=== PATIENT | male | born 1960 | race Caucasian/White ===

== ENCOUNTER 2017-03-14 09:53 | Inpatient (IN) ==
[2017-03-14] MEDS ORDERED: SODIUM CHLORIDE 0.9% 1,000 ML IV STA ×2 (10:27→10:37)
[2017-03-14 11:06] LABS: Basophils # 0.1 10*3/uL (0.0-0.2); Basophils % 1.4 % (0.0-0.8); Eosinophils # 0.2 10*3/uL (0.0-0.87); Eosinophils % 3.4 % (0.00-10.9); Hematocrit 42.4 VOL% (42.0-52.0); Hemoglobin 13.7 GM/DL (14.0-18.0); Immature Granulocytes % 0.2 %; Immature Granulocytes Absolute 0.01 #; Lymphocytes # 0.9 10*3/uL (1.4-4.0); Lymphocytes % 20.7 % (21.2-54.2); Mean Corpuscular HGB Conc 32.3 GM/DL (32-36); Mean Corpuscular Hemoglobin 28 PG (27-34); Mean Corpuscular Volume 85.3 FL (87-102); Mean Platelet Volume 10.8 FL (9.6-12.0); Monocytes # 0.3 10*3/uL (0.11-0.8); Monocytes % 7.7 % (1.7-12.7); Neutrophils # 2.9 10*3/uL (1.4-7.4); Neutrophils % 66.6 % (38.7-73.9); Platelet Count 296 T/CUMM (130-400); Red Blood Count 4.97 MC/CUMM (3.8-5.5); Red Cell Distribution Width 13.2 % (9.3-17.3); White Blood Count 4.4 T/CUMM (4-12)
[2017-03-14 11:15] LABS: Apearance,Urine CLEAR (Clear); Bilirubin,Urine Negative (Negative); Blood, Urine Negative (Negative); Glucose,Urine (UA) Negative (Negative); Hyaline Casts,Urine 2 /LPF (0-3); Ketones,Urine Negative (Negative); Mucus,Urine Occasional /LPF (Occasional); Nitrite,Urine Negative (Negative); Protein,Urine Negative; RBC,Urine 1 /HPF (0-4); Squamous Epithelial Cell,Urine Occasional /HPF (0-10); Urine Color Yellow (Yellow); Urine Specific Gravity 1.021 (1.001-1.035); WBC,Urine 1 /HPF (0-6)
[2017-03-14 11:17] LABS: Barbiturates Screen,Urine Negative (Negative); Benzodiazepines Screen,Urine Negative (Negative); Cannabinoid Screen,Urine Negative (Negative); Opiate Screen,Urine Negative (Negative); Phencyclidine Screen,Urine Negative (Negative)
[2017-03-14 11:18] LABS: Ammonia 29 UMOL/L (11-32)
[2017-03-14 11:33] LABS: Alanine Aminotransferase 39 U/L (16-61); Albumin 4.1 G/DL (3.4-5.0); Alkaline Phosphatase 167 U/L (45-117); Aspartate Amino Transferase 24 U/L (0-37); Bilirubin,Total < 0.39 MG/DL (0.2-1.0); Blood Urea Nitrogen 11 MG/DL (7-18); Calcium 10.1 MG/DL (8.5-10.1); Glucose 120 MG/DL (74-106); Osmolality,Calculated 278.4 MOS/KG (273-304); Potassium 3.4 MMOL/L (3.5-5.1); Sodium 140 MMOL/L (136-145); Total Protein 8.6 G/DL (6.4-8.3)
[2017-03-14] MEDS ORDERED: ACETAMINOPHEN 325 MG TABLET PO PRN (13:57)
[2017-03-14] MEDS ORDERED: GLUCAGON 1 MG VIAL IM PRN (13:57)
[2017-03-14] MEDS ORDERED: ONDANSETRON 4 MG/2 ML VIAL IV PRN (13:57)
[2017-03-14] MEDS ORDERED: DEXTROSE 50% 25 GM/50 ML VIAL IV PRN (13:57)
[2017-03-14] MEDS: SODIUM CHLORIDE 0.9% 1,000 ML IV SCH (15:17)
[2017-03-14] MEDS: INSULIN LISPRO 100 UNIT/ML SUBCUT SCH ×2 (16:11→22:16)
[2017-03-14] MEDS ORDERED: traZODone 50 MG TABLET PO PRN (19:00)
[2017-03-14] MEDS: DOCUSATE SODIUM 100 MG CAPSULE PO SCH (22:15)
[2017-03-14] MEDS: ARIPiprazole 10 MG TABLET PO SCH (22:15)
[2017-03-14] MEDS: metFORMIN 500 MG TABLET PO SCH (22:15)
[2017-03-15] MEDS: SODIUM CHLORIDE 0.9% 1,000 ML IV SCH ×3 (00:35→16:42)
[2017-03-15] MEDS: INSULIN LISPRO 100 UNIT/ML SUBCUT SCH ×4 (08:46→21:55)
[2017-03-15] MEDS: DOCUSATE SODIUM 100 MG CAPSULE PO SCH ×2 (08:49→21:54)
[2017-03-15] MEDS: metFORMIN 500 MG TABLET PO SCH ×2 (08:49→21:53)
[2017-03-15] MEDS: sitaGLIPtin 100 MG TABLET PO SCH (08:49)
[2017-03-15] MEDS: LISINOPRIL/HCTZ 20-25 MG TABLET PO SCH (08:50)
[2017-03-15] MEDS: amLODIPine 10 MG TABLET PO SCH (08:50)
[2017-03-15] MEDS: PANTOPRAZOLE 40 MG TABLET PO SCH (08:50)
[2017-03-15] MEDS: buPROPion SR 100 MG TABLET PO SCH (08:51)
[2017-03-15] MEDS: POTASSIUM CHLORIDE 10 MEQ TABLET PO SCH (10:20)
[2017-03-15] MEDS: MUPIROCIN 2% OINT 22 GM TUBE TOP SCH ×2 (11:39→21:56)
[2017-03-15] MEDS: CARBIDOPA/LEVODOPA 25-100 MG TABLET PO SCH (16:41)
[2017-03-15] MEDS: ARIPiprazole 10 MG TABLET PO SCH (21:54)
[2017-03-16] MEDS: MUPIROCIN 2% OINT 22 GM TUBE TOP SCH (09:00)
[2017-03-16] MEDS: sitaGLIPtin 100 MG TABLET PO SCH (09:51)
[2017-03-16] MEDS: DOCUSATE SODIUM 100 MG CAPSULE PO SCH (09:51)
[2017-03-16] MEDS: POTASSIUM CHLORIDE 10 MEQ TABLET PO SCH (09:51)
[2017-03-16] MEDS: PANTOPRAZOLE 40 MG TABLET PO SCH (09:51)
[2017-03-16] MEDS: buPROPion SR 100 MG TABLET PO SCH (09:52)
[2017-03-16] MEDS: CARBIDOPA/LEVODOPA 25-100 MG TABLET PO SCH (09:52)
[2017-03-16] MEDS: INSULIN LISPRO 100 UNIT/ML SUBCUT SCH ×2 (09:52→12:57)
[2017-03-16] MEDS: metFORMIN 500 MG TABLET PO SCH (09:52)
[2017-03-16] MEDS: amLODIPine 10 MG TABLET PO SCH (09:57)
[2017-03-16] MEDS: LISINOPRIL/HCTZ 20-25 MG TABLET PO SCH (09:58)
[2017-03-16] MEDS: SODIUM CHLORIDE 0.9% 1,000 ML IV SCH ×2 (10:01)
[2017-03-16 11:30] VITALS: BP 135/81
== END 2017-03-16 12:50 | disposition home or self-care (01) | DRG 885 ==
LOC: N.ED 09:53 → N.EDINP 11:52 → N.2E 13:16
PROVIDERS: ADMIT Family Medicine; ATTEND Family Medicine